=== PATIENT | female | born 1980 | race Caucasian/White ===

== ENCOUNTER 2017-07-25 12:30 | Emergency (ER) | payer OTHER ==
[~2017-07-25] VITALS: Ht 167.6 cm; Wt 60.9 kg
[~2017-07-25 12:30] MED LIST: RTL20 PO
[2017-07-25 12:32] VITALS: TEMP 36.7; Ht 167.6 cm; Wt 60.9 kg
[2017-07-25] MEDS ORDERED: SODIUM CHLORIDE 0.9% 1000ML 1,000 ML IV STA (12:58)
[2017-07-25 13:14] VITALS: O2SAT 99
[2017-07-25 13:30] LABS: BASO % 0.7 %; BASO ABS # 0.06 K/uL (0-0.2); EOS ABS # 0.17 K/uL (0-0.5); HEMATOCRIT 34.9 % (37-47); HEMOGLOBIN 10.7 g/dL (12.0-16.0); IG# 0.02 K/uL (0.00-0.02); LYMPH % 18.4 %; LYMPH ABS # 1.57 K/uL (1.2-3.4); MEAN CELL VOLUME 86.4 fL (80-100); MEAN CORPUSCULAR HEMOGLOBIN 26.5 pg (25-34); MEAN CORPUSCULAR HGB CONC 30.7 g/dl (32-36); MEAN PLATELET VOLUME 9.5 fL (7.4-10.4); MONO % 6.1 %; MONO ABS # 0.52 K/uL (0.11-0.59); NEUT % 72.6 %; NEUT ABS # 6.17 K/uL (1.4-6.5); PLATELET COUNT 368 K/uL (130-400); RED CELL DISTRIBUTION WIDTH CV 22.4 % (11.5-14.5); RED CELL DISTRIBUTION WIDTH SD 69.6 fL (36.4-46.3); WHITE BLOOD COUNT 8.51 K/uL (4.8-10.8)
[2017-07-25 13:45] LABS: INR 0.9 (0.9-1.1); PTT PATIENT 24.8 SECONDS (21.0-31.0)
[2017-07-25 13:52] LABS: ALBUMIN 4.3 gm/dl (3.4-5.0); CALCIUM 8.9 mg/dl (8.5-10.1); CREATININE 0.83 mg/dl (0.60-1.20); POTASSIUM 3.6 mmol/L (3.5-5.1)
[2017-07-25 13:54] LABS: TOTAL PROTEIN 7.9 gm/dl (6.4-8.2)
--- NOTE | 2017-07-25 14:08 | DIAGNOSTIC IMAGING REPORT ---
LUMBAR SPINE 2 OR 3 VIEWS HISTORY: 37 years-old Female lower back pain acute low back pain COMPARISON: None available TECHNIQUE: 3 views of the lumbar spine FINDINGS: 5 lumbar type vertebral segments are present. No acute fracture or subluxation. No significant degenerative changes or intervertebral disc space narrowing. Soft tissues are unremarkable. IMPRESSION: No acute fracture, subluxation or significant degenerative changes. The above report was generated using voice recognition software. It may contain grammatical, syntax or spelling errors. Electronically signed by: Jefry Leary M.D. 07/25/2017 2:07 PM Dictated Date/Time: 07/25/2017 2:06 PM
--- NOTE | 2017-07-25 14:50 | DIAGNOSTIC IMAGING REPORT ---
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 There is a large hypoechoic complex lesion which appears to be within the endometrial canal measuring 4.1 x 3.3 x 3.7 cm, previously measuring 2.4 x 2.0 x 2.6 cm on study dated 02/10/2016. Right ovary measures 2.6 x 1.7 x 2.8 cm and is unremarkable with arterial inflow documented. Left ovary measures 2.9 x 2.3 x 1.9 cm and is also within normal limits with arterial inflow documented. Patient refused the transvaginal portion of the study. Study is limited also secondary to overlying bowel gas. IMPRESSION: 1. Large hypoechoic complex lesion of the endometrial canal suggests a submucosal fibroid measuring up to 4.1 cm, increased in size from comparison study 02/10/2016. 2. Unremarkable sonographic appearance of the ovaries. The above report was generated using voice recognition software. It may contain grammatical, syntax or spelling errors. Electronically signed by: Jefry Leary M.D. 07/25/2017 2:49 PM Dictated Date/Time: 07/25/2017 2:46 PM
[2017-07-25] MEDS ORDERED: ATV/1 PO (14:51)
[2017-07-25] MEDS ORDERED: FERR1TAB23 PO (14:51)
[2017-07-25] MEDS ORDERED: ERGO500037 PO (14:51)
[2017-07-25] MEDS ORDERED: RTL20 PO (14:51)
[2017-07-25] MEDS ORDERED: ONDANSETRON INJ 2 MG/ML 2 ML VIAL IV STA (16:06)
[2017-07-25] MEDS ORDERED: MoRPHine SULFATE 4 MG/ML 1 ML CARP\\VIAL IV STA (16:06)
[2017-07-25] MEDS ORDERED: NORETHINDRONE ACETATE 5 MG TAB PO STA (17:02)
[2017-07-25] MEDS ORDERED: AYG/5 PO (17:28)
[2017-07-25 17:37] VITALS: BP 110/58; PULSE 68; O2SAT 99
--- NOTE | 2017-07-25 19:18 | EMERGENCY ROOM VISIT NOTE ---
History Report prepared by Joan: Alon Wiseman Under the Supervision of: Dr. Nik Torres D.O. First contact with patient: 12:49 Chief Complaint: ED VAG BLEEDING Stated Complaint: MENSTRAL CYCLE VERY BAD-LOW BLOOD LEVEL SENT BY History of Present Illness The patient is a 37 year old female who presents to the Emergency Room with complaints of persistent vaginal bleeding beginning two days ago. She states that she started her menstrual cycle a week earlier than normal. She states that her periods have been much heavier for the past several months. The patient states that her periods have been lasting for about three weeks, when they previously would normally last for 4-5 days. She states that she is passing very large blood clots as well. She also complains of abdominal pain, fatigue, dizziness, hot flashes, and low back pain. Her back pain is improved with pressing on it. The patient was seen by her PCP just prior to arrival for her symptoms and was referred to the ED after being found to have a hemoglobin of 9.9. She has a history of six successful births (two vaginally delivered, four by ), and one miscarriage. Pt denies headache, change in vision, fevers, chest pain, shortness of breath, nausea, vomiting, diarrhea, pain with urination, and melena. Source of History: patient Onset: Two days ago Position: other (vagina) Quality: other (bleeding) Timing: other (persistent) Associated Symptoms: + abdominal pain, + back pain (low), + fatigue, No fevers, No headache, No chest pain, No SOB, No melena, No diarrhea, No urinary symptoms Note: Additional symptoms: dizziness and hot flashes. Review of Systems See HPI for pertinent positives & negatives. A total of 10 systems reviewed and were otherwise negative. Past Medical & Surgical Medical Problems: (1) Abscess Of Vulva (2) Nicotine Dependence, Cigarettes, Uncomplicated Surgical Problems: (1) Breast Implant Status Family History FH: cancer FH: heart disease FH: hypertension Social History Smoking Status: Current Some Day Smoker Alcohol Use: none Marital Status: Housing Status: lives with family Occupation Status: employed Current/Historical Medications Scheduled Ergocalciferol (Vitamin D 41884 Unit), 50,000 UNIT PO WK Ferrous Sulfate (Iron), 325 MG PO DAILY Methylphenidate (Ritalin), 20 MG PO AFTERNOON Methylphenidate Hcl (Ritalin), 30 MG PO QAM Norethindrone Acetate (Aygestin), 1 TAB PO BID Scheduled PRN Lorazepam (Ativan), 1 MG PO Q6H PRN for Anxiety Allergies Coded Allergies: No Known Allergies (Unverified , 07/25/17) Physical Exam Vital Signs Date Time Temp Pulse Resp B/P (MAP) Pulse Ox O2 Delivery O2 Flow Rate FiO2 07/25/17 17:37 68 18 110/58 99 07/25/17 17:19 72 07/25/17 16:30 79 16 105/69 95 07/25/17 14:47 79 18 105/69 97 Room Air 07/25/17 13:49 79 16 100 Room Air 07/25/17 13:15 89 07/25/17 13:14 99 Room Air 07/25/17 12:32 36.7 89 17 121/74 100 Room Air Physical Exam GENERAL: Sitting up in bed, alert, well appearing, well nourished, no distress, non-toxic EYE EXAM: normal conjunctiva. OROPHARYNX: no exudate, no erythema, lips, buccal mucosa, and tongue normal and mucous membranes are moist NECK: supple, no nuchal rigidity, no adenopathy, non-tender LUNGS: Clear to auscultation. Normal chest wall mechanics HEART: no murmurs, S1 normal and S2 normal ABDOMEN: abdomen soft, non-tender, normo-active bowel sounds, no masses, no rebound or guarding. BACK: Back is symmetrical on inspection and there is no deformity, no CVA tenderness. Minimal tenderness in the midline of the lower/mid lumbar spine. SKIN: no rashes and no bruising PELVIC: Normal external Jenny. Small amount of clot removed from the vaginal vault. Bleeding was cleared with 3 large Q-tips. No filling of the vault. Unable to visualize cervix. UPPER EXTREMITIES: upper extremities are grossly normal. LOWER EXTREMITIES: No pitting edema. NEURO EXAM: Normal sensorium, cranial nerves II-XII grossly intact, normal speech, no gross weakness of arms, no gross weakness of legs. Medical Decision & Procedures ER Provider Diagnostic Interpretation: Radiology results as stated below per my review and the radiologist's interpretation: LUMBAR SPINE 2 OR 3 VIEWS FINDINGS: 5 lumbar type vertebral segments are present. No acute fracture or subluxation. No significant degenerative changes or intervertebral disc space narrowing. Soft tissues are unremarkable. IMPRESSION: No acute fracture, subluxation or significant degenerative changes. The above report was generated using voice recognition software. It may contain grammatical, syntax or spelling errors. Electronically signed by: Jefry Leary M.D. 07/25/2017 2:07 PM PELVIC COMPLETE NON OB FINDINGS: Anteflexed uterus measures 10.2 x 6.3 x 5.5 cm. There is a large hypoechoic complex lesion which appears to be within the endometrial canal measuring 4.1 x 3.3 x 3.7 cm, previously measuring 2.4 x 2.0 x 2.6 cm on study dated 02/10/2016. Right ovary measures 2.6 x 1.7 x 2.8 cm and is unremarkable with arterial inflow documented. Left ovary measures 2.9 x 2.3 x 1.9 cm and is also within normal limits with arterial inflow documented. Patient refused the transvaginal portion of the study. Study is limited also secondary to overlying bowel gas. IMPRESSION: 1. Large hypoechoic complex lesion of the endometrial canal suggests a submucosal fibroid measuring up to 4.1 cm, increased in size from comparison study 02/10/2016. 2. Unremarkable sonographic appearance of the ovaries. The above report was generated using voice recognition software. It may contain grammatical, syntax or spelling errors. Electronically signed by: Jefry Leary M.D. 07/25/2017 2:49 PM Laboratory Results 07/25/17 13:11 Red Blood Count 4.04, Mean Corpuscular Volume 86.4, Mean Corpuscular Hemoglobin 26.5, Mean Corpuscular Hemoglobin Concent 30.7, Mean Platelet Volume 9.5, Neutrophils (%) (Auto) 72.6, Lymphocytes (%) (Auto) 18.4, Monocytes (%) (Auto) 6.1, Eosinophils (%) (Auto) 2.0, Basophils (%) (Auto) 0.7, Neutrophils # (Auto) 6.17, Lymphocytes # (Auto) 1.57, Monocytes # (Auto) 0.52, Eosinophils # (Auto) 0.17, Basophils # (Auto) 0.06 07/25/17 13:11 Test 07/25/17 13:10 07/25/17 13:11 Urine Color YELLOW Urine Appearance CLEAR (CLEAR) Urine pH 6.5 (4.5-7.5) Urine Specific [place] 1.023 (1.000-1.030) Urine Protein NEG (NEG) Urine Glucose (UA) NEG (NEG) Urine Ketones NEG (NEG) Urine Occult Blood 3+ (NEG) Urine Nitrite NEG (NEG) Urine Bilirubin NEG (NEG) Urine Urobilinogen NEG (NEG) Urine Leukocyte Esterase NEG (NEG) Urine WBC (Auto) 1-5 /hpf (0-5) Urine RBC (Auto) >30 /hpf (0-4) Urine Hyaline Casts (Auto) 1-5 /lpf (0-5) Urine Epithelial Cells (Auto) 10-20 /lpf (0-5) Urine Bacteria (Auto) NEG (NEG) Urine Test NEG (NEG) White Blood Count 8.51 K/uL (4.8-10.8) Red Blood Count 4.04 M/uL (4.2-5.4) Hemoglobin 10.7 g/dL (12.0-16.0) Hematocrit 34.9 % (37-47) Mean Corpuscular Volume 86.4 fL (80-100) Mean Corpuscular Hemoglobin 26.5 pg (25-34) Mean Corpuscular Hemoglobin Concent 30.7 g/dl (32-36) Platelet Count 368 K/uL (130-400) Mean Platelet Volume 9.5 fL (7.4-10.4) Neutrophils (%) (Auto) 72.6 % Lymphocytes (%) (Auto) 18.4 % Monocytes (%) (Auto) 6.1 % Eosinophils (%) (Auto) 2.0 % Basophils (%) (Auto) 0.7 % Neutrophils # (Auto) 6.17 K/uL (1.4-6.5) Lymphocytes # (Auto) 1.57 K/uL (1.2-3.4) Monocytes # (Auto) 0.52 K/uL (0.11-0.59) Eosinophils # (Auto) 0.17 K/uL (0-0.5) Basophils # (Auto) 0.06 K/uL (0-0.2) RDW Standard Deviation 69.6 fL (36.4-46.3) RDW Coefficient of Variation 22.4 % (11.5-14.5) Immature Granulocyte % (Auto) 0.2 % Immature Granulocyte # (Auto) 0.02 K/uL (0.00-0.02) Ovalocytes 1+ Acanthocytes 1+ Prothrombin Time 9.9 SECONDS (9.0-12.0) Prothromb Time International Ratio 0.9 (0.9-1.1) Activated Partial Thromboplast Time 24.8 SECONDS (21.0-31.0) Partial Thromboplastin Ratio 1.0 Anion Gap 5.0 mmol/L (3-11) Est Creatinine Clear Calc Drug Dose 87.7 ml/min Estimated GFR () 105.1 Estimated GFR (Non- 90.7 BUN/Creatinine Ratio 16.4 (10-20) Calcium Level 8.9 mg/dl (8.5-10.1) Total Bilirubin 0.2 mg/dl (0.2-1) Aspartate Amino Transf (AST/SGOT) 13 U/L (15-37) Alanine Aminotransferase (ALT/SGPT) 18 U/L (12-78) Alkaline Phosphatase 63 U/L (45-117) Total Protein 7.9 gm/dl (6.4-8.2) Albumin 4.3 gm/dl (3.4-5.0) Globulin 3.6 gm/dl (2.5-4.0) Albumin/Globulin Ratio 1.2 (0.9-2) Laboratory results per my review. Medications Administered Medications (Trade) Dose Ordered Sig/Valeria Route Start Time Stop Time Status Last Admin Dose Admin Sodium Chloride 1,000 ml @ 999 mls/hr Q1H1M STAT IV 07/25/17 12:58 07/25/17 13:58 DC 07/25/17 13:20 999 MLS/HR Morphine Sulfate (MoRPHine SULFATE INJ) 4 mg NOW STAT IV 07/25/17 16:06 07/25/17 16:08 DC 07/25/17 16:29 4 MG Ondansetron HCl (Zofran Inj) 4 mg NOW STAT IV 07/25/17 16:06 07/25/17 16:08 DC 07/25/17 16:29 4 MG Norethindrone Acetate (Aygestin Tab) 5 mg ONE STAT PO 07/25/17 17:02 07/25/17 17:03 DC 07/25/17 17:33 5 MG ED Course ED COURSE: Vital signs were reviewed and appeared normal. The patients medical record was reviewed The above diagnostic studies were performed and reviewed. ED treatments and interventions as stated above. 1250: The patient was evaluated in room C8. A complete history and physical examination was performed. 1258: Ordered Sodium Chloride 1000 ml @ 999 mls/hr IV. 1606: Ordered Zofran Inj 4 mg IV, Morphine Sulfate 4 mg IV. 1702: Ordered Aygestin Tab 5 mg PO. 1722: Upon reevaluation, the patient is resting comfortably. I discussed my findings with the patient and she understands and agrees with the treatment plan. Based on the patients age, coexisting illnesses, exam and lab findings the decision to treat as an outpatient was made. The patient remained stable while under my care. The patient appeared well at the time of discharge. Medical Decision Differential diagnoses includes but is not limited to gastritis, peptic ulcer disease, GERD, gallbladder disease, pancreatitis, small bowel obstruction, acute coronary syndrome, pericarditis, ischemic bowel, irritable bowel disease, irritable bowel syndrome, appendicitis, diverticulitis, malignancy, hernia, urinary tract infection, torsion, /ectopic , perforation, trauma, infectious. Patient is a 37-year-old female who presents to ER who is a for vaginal bleeding. She notes that her periods have been lengthening induration and worsening and bleeding since April. Patient is to abdominal cramping, passing blood clots. Bleeding has been worse over the past 2-3 days. She is referred over here by her PCP. Baseline hemoglobin is 11. Today is 10.7. BMP all LFTs, bilirubin and INR was unremarkable. UA was negative. was negative. Ultrasound shows a fibroid. Pelvic I removed a small amount clot. There is no significant bleeding. Discussed with OB. They recommended giving progesterone and following up as an outpatient. I did discuss with [facility] as she has seen them before in the past. She already has an appointment with her vehicle operator from [place] on Monday. If she cannot get an earlier appointment she will follow-up and keep her appointment next Monday with her vehicle operator. Discussed with Pt concerning signs and symptoms to watch out for. Pt was instructed to follow up with their PCP and discussed with the patient their option to return to the ED at anytime for persistent or worsening symptoms. The appropriate anticipatory guidance and out-patient management, including indications for return to the emergency department, were explained at length to the patient and understood. Medication Reconcilliation Current Medication List: was personally reviewed by me Blood Pressure Screening Patient's blood pressure: Normal blood pressure Blood pressure disposition: Did not require urgent referral Consults Time Called: [id number] Consulting Physician: Dr. Yamileth NOLASCO Returned Call: [phone] I reviewed the patient's case with Dr. Carson. He recommends Aygestin for two weeks and will see the patient in the office this week. Impression Primary Impression: Dysfunctional uterine bleeding Additional Impression: Anemia Scribe Attestation The scribe's documentation has been prepared under my direction and personally reviewed by me in its entirety. I confirm that the note above accurately reflects all work, treatment, procedures, and medical decision making performed by me. Departure Information Dispostion Home / Self-Care Prescriptions Norethindrone Acetate (AYGESTIN) 5 Mg Tab 1 TAB PO BID for 10 Days, #20 TAB Prov: Nik Torres, DO 07/25/17 Referrals Frederick Brice D.O. (PCP) Forms HOME CARE DOCUMENTATION FORM, IMPORTANT VISIT INFORMATION, WORK / SCHOOL INSTRUCTIONS Patient Instructions ED Bleed Irregular Vaginal, My [facility] [place] [facility] Additional Instructions Please follow up with your primary care doctor with in the next 24 hours. Any worsening of your symptoms, please return to the ED immediately. This includes any fevers greater than 100.4, worsening pain, chest pain, shortness breath, persistent nausea, vomiting, unable to eat or drink, or any other concerning signs or symptoms from your standpoint. Please take Tylenol or Motrin as needed for pain. Please follow up with [facility] within the next week. Please take Aygestin as prescribed. Please call Dr. Carson office first as he is a [facility] doctor who you have seen before in the past. Problem Qualifiers Additional Impression: Anemia Anemia type: unspecified type Qualified Codes: D64.9 - Anemia, unspecified
== END 2017-07-25 17:53 | disposition home or self-care (01) ==
LOC: C.EDB 12:31 → C.EDC 17:53
DX: N93.8 Other specified abnormal uterine and vaginal bleeding (principal); D64.9 Anemia, unspecified; F17.200 Nicotine dependence, unspecified, uncomplicated; Z86.19 Personal history of other infectious and parasitic diseases; Z79.899 Other long term (current) drug therapy; Z80.9 Family history of malignant neoplasm, unspecified; Z82.49 Family history of ischemic heart disease and other diseases of the circulatory system